=== PATIENT | male | born 1995 | race African-American/Black ===

== ENCOUNTER 2019-05-13 10:02 | Emergency (ER) | payer SELFPAY ==
[~2019-05-13] VITALS: Ht 175.3 cm; Wt 90.9 kg
[2019-05-13 10:11] VITALS: Ht 175.3 cm; Wt 90.9 kg
[2019-05-13] MEDS ORDERED: HYDROCODON-ACE1 EAC7 PO (11:41)
[2019-05-13] MEDS ORDERED: KEFLEX500 MG PO (11:41)
[2019-05-13 12:38] VITALS: BP 129/69
== END 2019-05-13 12:38 | disposition home or self-care (01) ==
LOC: D.ER 10:02
DX: S61.215A Laceration without foreign body of left ring finger without damage to nail, initial encounter (principal); W23.0XXA Caught, crushed, jammed, or pinched between moving objects, initial encounter; F17.210 Nicotine dependence, cigarettes, uncomplicated